=== PATIENT | female | born 1965 | race Caucasian/White ===

== ENCOUNTER 2016-06-24 02:54 | Emergency (ER) | payer MEDICARE, BC ==
[2016-06-24 03:08] VITALS: RESP 14; TEMP 98.7
[2016-06-24] MEDS ORDERED: IV VANCOMYCIN PER PHARMACY 1 EACH MISC MISCELLANE PRN (03:22)
[2016-06-24] MEDS ORDERED: ACETAMINOPHEN IV (For NPO) 1,000 MG in EMPTY BAG 1 BAG IVPB STA (03:22)
[2016-06-24] MEDS ORDERED: KETOROLAC 30 MG/ML 1 ML VIAL IVP STA (03:22)
[2016-06-24] MEDS ORDERED: MORPHINE SULFATE 4 MG/ML SYRINGE IVP STA (03:22)
[2016-06-24] MEDS ORDERED: SODIUM CHLORIDE 0.9% 1,000 ML IV STA ×2 (03:22)
--- NOTE | 2016-06-24 03:26 | ED ---
General Adult HPI - General Chief complaint: Back Pain/Injury Stated complaint: back pain Time Seen by Provider: 06/24/16 03:05 Source: patient, RN notes reviewed, old records reviewed Mode of arrival: EMS Limitations: physical limitation - History of Present Illness Initial comments: This is a 50-year-old female the ER for evaluation of back pain, increasing back pain or rash. Probably drainage from the rash going on for about 2 days. No fevers, but increasing pain and increasing pain with ambulation. Worse than normal. Patient states she ate 2 years ago she had the device placed for help with back pain, [employer] device. She had no significant issues or symptoms since. Good healing. And today she noticed drainage from the device, increasing pain for the last 2 days. Again no fevers or neurological deficit - Related Data Home Medications Medication Instructions Recorded Confirmed Carisoprodol [Soma] 350 mg PO Q8H 10/30/14 10/30/14 Hydrocodone/Acetaminophen [Vicodin 1 each PO Q4H 10/30/14 10/30/14 Es 7.5-300 mg Tablet] Ibuprofen [Motrin] 800 mg PO Q8HR PRN 10/30/14 10/30/14 traMADol HCL [Ultram ER] 200 mg PO Q6HR 10/30/14 10/30/14 Previous Rx's Medication Instructions Recorded cefTRIAXone [Rocephin] 2,000 mg IVPB Q24HR 28 Days 11/02/14 Allergies Allergy/AdvReac Type Severity Reaction Status Date / Time No Known Allergies Allergy Verified 10/30/14 15:11 Review of Systems ROS Statement: Those systems with pertinent positive or pertinent negative responses have been documented in the HPI. ROS Other: All systems not noted in ROS Statement are negative. 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 AN, LASIK EYE SX 1997, OVARIAN CYST 1993, RT KNEE ARTHROSCOPY, colonoscopy showing diverticulosis, arthroscopic knee for torn meniscus, heart catheterization in 1999, Past Anesthesia/Blood Transfusion Reactions: No Reported Reaction Past Psychological History: No Psychological Hx Reported Smoking Status: Never smoker Past Alcohol Use History: None Reported Additional Past Alcohol Use History / Comment(s): Patient states she is a lifelong nonsmoker. She denies any medical marijuana, marijuana or street drug use. She denies any alcohol use. Patient is worked at [employer] and has been on disability since 2011. Patient's mom lives with her. There is a dog in the home. No recent travel. Past Drug Use History: None Reported - Past Family History Father Family Medical History: Unable to Obtain Mother Family Medical History: Unable to Obtain General Exam Limitations: physical limitation General appearance: alert, in no apparent distress Head exam: Present: atraumatic, normocephalic, normal inspection Eye exam: Present: normal appearance, PERRL, EOMI. Absent: scleral icterus, conjunctival injection, periorbital swelling ENT exam: Present: normal exam, mucous membranes moist Neck exam: Present: normal inspection. Absent: tenderness, meningismus, lymphadenopathy Respiratory exam: Present: normal lung sounds bilaterally. Absent: respiratory distress, wheezes, rales, rhonchi, stridor Cardiovascular Exam: Present: normal rhythm, tachycardia, normal heart sounds. Absent: systolic murmur, diastolic murmur, rubs, gallop, clicks GI/Abdominal exam: Present: soft, normal bowel sounds. Absent: distended, tenderness, guarding, rebound, rigid Extremities exam: Present: normal inspection, full ROM, normal capillary refill. Absent: tenderness, pedal edema, joint swelling, calf tenderness Back exam: Present: normal inspection, rash noted, other (Patient does have abscess and drainage noted right paraspinal) Neurological exam: Present: alert, oriented X3, CN II-XII intact Psychiatric exam: Present: normal affect, normal mood Skin exam: Present: warm, dry, intact, normal color. Absent: rash Course Vital Signs 06/24/16 06/24/16 03:04 04:37 Temperature 98.7 F Pulse Rate 112 H 92 Respiratory 14 14 Rate Blood Pressure 155/71 138/63 O2 Sat by Pulse 98 95 Oximetry - Reevaluation(s) Reevaluation #1: 01/25/17 03:24 Patient's pain management doctor attempted to be reached EKG Findings - EKG Comments: EKG Findings:: EKG shows sinus tachycardia rate 102, MD 118, QRS 120, QTC 500 Medical Decision Making - Medical Decision Making 51 female in the ER for evaluation of back pain. Increasing back pain redness and drainage from surgical site. Patient has a pustular and purulent drainage from her surgical site. Patient was started on IV antibiotics and transferred to facility where her surgery was done - Lab Data Result diagrams: 06/24/16 03:55 06/24/16 03:55 Lab Results 06/24/16 06/24/16 06/24/16 Range/Units 03:55 03:55 03:55 WBC 12.2 H (3.8-10.6) k/uL RBC 3.79 L (3.80-5.40) m/uL Hgb 9.5 L (11.4-16.0) gm/dL Hct 30.7 L (34.0-46.0) % MCV 81.1 (80.0-100.0) fL MCH 24.9 L (25.0-35.0) pg MCHC 30.8 L (31.0-37.0) g/dL RDW 15.7 H (11.5-15.5) % Plt Count 307 (150-450) k/uL Neutrophils % 82 % Lymphocytes % 11 % Monocytes % 4 % Eosinophils % 2 % Basophils % 0 % Neutrophils # 10.0 H (1.3-7.7) k/uL Lymphocytes # 1.4 (1.0-4.8) k/uL Monocytes # 0.5 (0-1.0) k/uL Eosinophils # 0.2 (0-0.7) k/uL Basophils # 0.1 (0-0.2) k/uL Hypochromasia Slight Sodium 140 (137-145) mmol/L Potassium 4.1 (3.5-5.1) mmol/L Chloride 105 (98-107) mmol/L Carbon Dioxide 22 (22-30) mmol/L Anion Gap 13 mmol/L BUN 12 (7-17) mg/dL Creatinine 0.65 (0.52-1.04) mg/dL Est GFR (MDRD) Af Amer >60 (>60 ml/min/1.73 sqM) Est GFR (MDRD) Non-Af >60 (>60 ml/min/1.73 sqM) Glucose 105 H (74-99) mg/dL Plasma Lactic Acid Lorenzo 1.2 (0.7-2.0) mmol/L Calcium 8.7 (8.4-10.2) mg/dL Phosphorus 3.5 (2.5-4.5) mg/dL Magnesium 1.7 (1.6-2.3) mg/dL Total Bilirubin 0.6 (0.2-1.3) mg/dL AST 32 (14-36) U/L ALT 32 (9-52) U/L Alkaline Phosphatase 86 (38-126) U/L Total Protein 7.1 (6.3-8.2) g/dL Albumin 3.4 L (3.5-5.0) g/dL Disposition Clinical Impression: Post op infection Disposition: OTHER INSTITUTION NOT DEFINED Condition: Fair Referrals: Ced Tobias MD [Primary Care Provider] - 1-2 days - Out of Hospital Transfer - Req. Specs Out of Hospital Transfer - Requested Specifics[facility]
[2016-06-24] MEDS ORDERED: VANCOMYCIN 2,000 MG in SODIUM CHLORIDE 0.9% 500 ML IVPB STA (03:31)
[2016-06-24 04:07] LABS: Basophils # (A) 0.1 k/uL (0-0.2); Basophils % (A) 0 %; CH 25.5; CHCM 31.5; Eosinophils # (A) 0.2 k/uL (0-0.7); Eosinophils % (A) 2 %; HCT 30.7 % (34.0-46.0); HDW 3.15; HGB 9.5 gm/dL (11.4-16.0); Hypochromasia Slight; Luc # (Auto) 0.12; Luc % (Auto) 1; Lymphocytes # (A) 1.4 k/uL (1.0-4.8); Lymphocytes % (A) 11 %; MCH 24.9 pg (25.0-35.0); MCHC 30.8 g/dL (31.0-37.0); MCV 81.1 fL (80.0-100.0); Mean Platelet Volume 8.1; Monocytes # (A) 0.5 k/uL (0-1.0); Monocytes % (A) 4 %; Neutrophils % (A) 82 %; RBC 3.79 m/uL (3.80-5.40); RDW 15.7 % (11.5-15.5); WBC 12.2 k/uL (3.8-10.6); WBC (Perox) 13.32
[2016-06-24 04:17] LABS: ALT 32 U/L (9-52); AST 32 U/L (14-36); Alkaline Phosphatase 86 U/L (38-126); Anion Gap 13 mmol/L; Blood Urea Nitrogen 12 mg/dL (7-17); Calcium 8.7 mg/dL (8.4-10.2); Carbon Dioxide 22 mmol/L (22-30); Chloride 105 mmol/L (98-107); Glucose 105 mg/dL (74-99); Magnesium 1.7 mg/dL (1.6-2.3); Non-African American GFR(MDRD) >60 (>60 ml/min/1.73 sqM); Phosphorous 3.5 mg/dL (2.5-4.5); Potassium 4.1 mmol/L (3.5-5.1); Sodium 140 mmol/L (137-145); Total Bilirubin 0.6 mg/dL (0.2-1.3); Total Protein 7.1 g/dL (6.3-8.2)
[2016-06-24 04:38] VITALS: BP 138/63; PULSE 92
[2016-06-24 05:54] LABS: INR 1.1 (<1.1); Partial Thromboplastin Time 36.7 sec (22.0-30.0); Prothrombin Time 11.1 sec (9.0-12.0)
== END 2016-06-24 05:52 | disposition other institution (70) ==
LOC: EC 02:54
DX: T85.79XA Infection and inflammatory reaction due to other internal prosthetic devices, implants and grafts, initial encounter (principal); M54.9 Dorsalgia, unspecified; G89.29 Other chronic pain; M43.27 Fusion of spine, lumbosacral region; Z98.61 Coronary angioplasty status; Z79.899 Other long term (current) drug therapy; Z79.891 Long term (current) use of opiate analgesic
CPT/HCPCS: 99285 ×2; 96365 ×2; 96375 ×2; 36415; 93005; 80053; 83605; 83735; 84100; 85025; 85610; 85730; 87040; 96367; J3370; J2270; J1885; J0131

== ENCOUNTER → 2016-08-03 | Outpatient (CLI) | payer MEDICARE, BC ==
[2016-08-03 17:37] LABS: Anisocytosis Slight; Basophils # (A) 0.1 k/uL (0-0.2); Basophils % (A) 1 %; CH 27.2; CHCM 31.9; Eosinophils # (A) 0.2 k/uL (0-0.7); Eosinophils % (A) 3 %; HCT 42.3 % (34.0-46.0); HDW 3.11; HGB 13.3 gm/dL (11.4-16.0); Hypochromasia Slight; Luc # (Auto) 0.18; Luc % (Auto) 2; Lymphocytes # (A) 2.2 k/uL (1.0-4.8); Lymphocytes % (A) 29 %; MCH 26.9 pg (25.0-35.0); MCHC 31.5 g/dL (31.0-37.0); MCV 85.5 fL (80.0-100.0); Mean Platelet Volume 7.9; Monocytes # (A) 0.3 k/uL (0-1.0); Monocytes % (A) 4 %; Neutrophils # (A) 4.6 k/uL (1.3-7.7); Neutrophils % (A) 61 %; RBC 4.95 m/uL (3.80-5.40); RDW 17.4 % (11.5-15.5); WBC 7.5 k/uL (3.8-10.6); WBC (Perox) 8.01
[2016-08-03 17:50] LABS: Anion Gap 14 mmol/L; Blood Urea Nitrogen 24 mg/dL (7-17); Calcium 9.6 mg/dL (8.4-10.2); Carbon Dioxide 22 mmol/L (22-30); Chloride 107 mmol/L (98-107); Creatine Kinase 42 U/L (30-135); Glucose 88 mg/dL (74-99); Non-African American GFR(MDRD) >60 (>60 ml/min/1.73 sqM); Potassium 4.4 mmol/L (3.5-5.1); Sodium 143 mmol/L (137-145)
[2016-08-03 19:08] LABS: Erythrocyte Sedimentation Rate 50 mm/hr (0-20)
== END | disposition home or self-care (01) ==
LOC: LABWHC1 16:52
PROVIDERS: ATTEND Internal Medicine Infectious Disease
DX: T85.9XXA Unspecified complication of internal prosthetic device, implant and graft, initial encounter (principal)
CPT/HCPCS: 36415; 80048; 82550; 85025; 85652; 86140

== ENCOUNTER → 2016-08-20 | Outpatient (CLI) | payer MEDICARE, BC | LOC: LABWHC1 15:24 | PROVIDERS: ATTEND Internal Medicine Infectious Disease | DX: B99.9 Unspecified infectious disease (principal); A49.02 Methicillin resistant Staphylococcus aureus infection, unspecified site | CPT/HCPCS: 36415; 85652; 86140 ==

== ENCOUNTER → 2016-12-14 | Outpatient (CLI) | payer MEDICARE, BC ==
[2016-12-14 16:46] LABS: Anisocytosis Slight; Basophils # (A) 0.1 k/uL (0-0.2); Basophils % (A) 1 %; CH 26.8; Eosinophils # (A) 0.2 k/uL (0-0.7); Eosinophils % (A) 3 %; HCT 39.1 % (34.0-46.0); HDW 2.89; HGB 12.7 gm/dL (11.4-16.0); Hypochromasia Slight; Luc % (Auto) 1; Lymphocytes # (A) 1.8 k/uL (1.0-4.8); Lymphocytes % (A) 23 %; MCH 27.3 pg (25.0-35.0); MCHC 32.5 g/dL (31.0-37.0); Mean Platelet Volume 7.4; Monocytes # (A) 0.4 k/uL (0-1.0); Monocytes % (A) 4 %; Neutrophils # (A) 5.5 k/uL (1.3-7.7); Neutrophils % (A) 68 %; RBC 4.65 m/uL (3.80-5.40); RDW 16.3 % (11.5-15.5); WBC (Perox) 7.94
[2016-12-14 16:59] LABS: ALT 33 U/L (9-52); AST 21 U/L (14-36); Alkaline Phosphatase 77 U/L (38-126); Anion Gap 13 mmol/L; Blood Urea Nitrogen 20 mg/dL (7-17); C Reactive Protein 15.4 mg/L (<10.0); Calcium 9.1 mg/dL (8.4-10.2); Carbon Dioxide 21 mmol/L (22-30); Chloride 106 mmol/L (98-107); Creatine Kinase 65 U/L (30-135); Glucose 120 mg/dL (74-99); Non-African American GFR(MDRD) >60 (>60 ml/min/1.73 sqM); Potassium 3.9 mmol/L (3.5-5.1); Sodium 140 mmol/L (137-145); Total Bilirubin 0.3 mg/dL (0.2-1.3); Total Protein 7.2 g/dL (6.3-8.2)
[2016-12-14 22:06] LABS: Erythrocyte Sedimentation Rate 40 mm/hr (0-20)
== END | disposition home or self-care (01) ==
LOC: LABWHC1 16:04
PROVIDERS: ATTEND Internal Medicine Infectious Disease
DX: L02.212 Cutaneous abscess of back [any part, except buttock and flank] (principal); L03.312 Cellulitis of back [any part except buttock and flank]; L02.31 Cutaneous abscess of buttock
CPT/HCPCS: 36415; 80053; 82550; 85025; 85652; 86140

== ENCOUNTER → 2016-12-21 | Outpatient (CLI) | payer MEDICARE, BC ==
[2016-12-21 17:10] LABS: Anisocytosis Slight; CH 27.6; CHCM 32.6; HCT 41.7 % (34.0-46.0); HDW 2.99; HGB 13.8 gm/dL (11.4-16.0); MCV 84.9 fL (80.0-100.0); Mean Platelet Volume 8.1; RBC 4.91 m/uL (3.80-5.40); RDW 16.6 % (11.5-15.5); WBC 10.8 k/uL (3.8-10.6)
[2016-12-21 17:18] LABS: ALT 37 U/L (9-52); AST 26 U/L (14-36); Alkaline Phosphatase 82 U/L (38-126); Anion Gap 16 mmol/L; Blood Urea Nitrogen 18 mg/dL (7-17); Calcium 9.3 mg/dL (8.4-10.2); Carbon Dioxide 21 mmol/L (22-30); Chloride 105 mmol/L (98-107); Creatine Kinase 69 U/L (30-135); Glucose 98 mg/dL (74-99); Non-African American GFR(MDRD) >60 (>60 ml/min/1.73 sqM); Sodium 142 mmol/L (137-145); Total Bilirubin 0.4 mg/dL (0.2-1.3)
== END | disposition home or self-care (01) ==
LOC: LABWHC1 16:37
PROVIDERS: ATTEND Orthopaedic Surgery
DX: L02.212 Cutaneous abscess of back [any part, except buttock and flank] (principal); L03.312 Cellulitis of back [any part except buttock and flank]; L02.31 Cutaneous abscess of buttock; Z45.2 Encounter for adjustment and management of vascular access device
CPT/HCPCS: 36415; 80053; 82550; 85027

== ENCOUNTER → 2017-01-07 | Outpatient (CLI) | payer MEDICARE, BC ==
[2017-01-07 15:32] LABS: Anisocytosis Slight; CH 27.3; CHCM 32.2; HCT 41.5 % (34.0-46.0); HDW 2.76; HGB 13.7 gm/dL (11.4-16.0); MCH 28.2 pg (25.0-35.0); MCHC 33.1 g/dL (31.0-37.0); MCV 85.1 fL (80.0-100.0); Mean Platelet Volume 7.4; RBC 4.87 m/uL (3.80-5.40); RDW 16.1 % (11.5-15.5); WBC 7.9 k/uL (3.8-10.6)
[2017-01-07 15:45] LABS: ALT 35 U/L (9-52); AST 27 U/L (14-36); Alkaline Phosphatase 82 U/L (38-126); Anion Gap 13 mmol/L; Blood Urea Nitrogen 19 mg/dL (7-17); C Reactive Protein 9.6 mg/L (<10.0); Calcium 9.2 mg/dL (8.4-10.2); Carbon Dioxide 21 mmol/L (22-30); Chloride 109 mmol/L (98-107); Glucose 76 mg/dL (74-99); Non-African American GFR(MDRD) >60 (>60 ml/min/1.73 sqM); Sodium 143 mmol/L (137-145); Total Bilirubin 0.3 mg/dL (0.2-1.3); Total Protein 7.7 g/dL (6.3-8.2)
[2017-01-07 19:33] LABS: Erythrocyte Sedimentation Rate 25 mm/hr (0-20)
== END | disposition home or self-care (01) ==
LOC: LABWHC1 15:06
PROVIDERS: ATTEND Internal Medicine Infectious Disease
DX: B99.9 Unspecified infectious disease (principal)
CPT/HCPCS: 36415; 80053; 85027; 85652; 86140

== ENCOUNTER → 2017-01-18 | Outpatient (CLI) | payer MEDICARE, BC ==
--- NOTE | 2017-01-19 08:56 | NM ---
EXAMINATION TYPE: NM bone scan whole body DATE OF EXAM: 01/18/2017 COMPARISON: NONE HISTORY: Pain, failed back syndrome Delayed whole-body scanning was performed following the injection of 25.1 mCi Tc 99m MDP. Images acq uired 3.5 hours post injection. FINDINGS: There is mild increased uptake lumbar spine compatible with degenerative change and postoperative betsey nges. No evidence for intense uptake. Degenerative uptake is seen in the shoulders, sternoclavicular joints, bilateral knees, bilateral ankles and mid feet. No intense uptake to suggest fracture or osse ous lesion. IMPRESSION: Degenerative and postoperative uptake as noted.
== END | disposition home or self-care (01) ==
LOC: RADNMMAIN 10:29
PROVIDERS: ATTEND Orthopaedic Surgery
DX: S31.819D Unspecified open wound of right buttock, subsequent encounter (principal); S31.829D Unspecified open wound of left buttock, subsequent encounter; M96.1 Postlaminectomy syndrome, not elsewhere classified; Z98.890 Other specified postprocedural states
CPT/HCPCS: 78306; A9503

== ENCOUNTER → 2017-01-25 | Outpatient (CLI) | payer MEDICARE, BC ==
--- NOTE | 2017-01-28 14:55 | NM ---
EXAMINATION TYPE: NM Gallium whole body 2+ days DATE OF EXAM: 01/28/2017 COMPARISON: NONE HISTORY: Open decubitus ulcerations bilaterally for 3 years since [employer] stimulator installation 2 014. History of L2-S1 spinal surgery. Following administration of 5.62 mCi Ga67 Citrate. Images obtained 4, 24, 48, and 72 hours post injec tion. FINDINGS: There is no gallium uptake exceeding bone seeking radiopharmaceutical uptake to indicate active osteo myelitis. Physiologic uptake is seen within the liver and nasopharynx. Uptake is present at the gleno humeral joints, femoral acetabular joints, knees, ankle joints, and sacroiliac joints most likely rel ated to inflammation from degenerative change. Superficial accumulation is seen overlying the gluteal region in the known distribution of the bilateral ulcers. IMPRESSION: 1. Superficial accumulation of gallium within the gluteal regions corresponding the patient's known u lcerations. 2. Symmetric uptake within the glenohumeral joints, femoral acetabular joints, knees, ankle joints, a nd sacroiliac joints that is most likely related to nonspecific inflammation of degenerative change. 3. No focal suspicious radiotracer accumulation to indicate active osteomyelitis.
== END | disposition home or self-care (01) ==
LOC: RADNMMAIN 09:51
PROVIDERS: ATTEND Orthopaedic Surgery
DX: S31.829D Unspecified open wound of left buttock, subsequent encounter (principal); M96.1 Postlaminectomy syndrome, not elsewhere classified
CPT/HCPCS: 78804; A9556

== ENCOUNTER → 2019-02-22 | Outpatient (CLI) | payer MEDICARE ==
--- NOTE | 2019-02-24 13:23 | MM ---
Reason for exam: screening (asymptomatic). Last mammogram was performed 13 years and 3 months ago. History: Patient is nulliparous. Took hormonal contraceptives beginning at age 29. Physical Findings: A clinical breast exam by your physician is recommended on an annual basis and results should be correlated with mammographic findings. MG 3D Screening Mammo W/Cad Bilateral CC and MLO view(s) were taken. No prior studies available for comparison. The breast tissue is almost entirely fat. There is no discrete abnormality. ASSESSMENT: Negative, BI-RAD 1 RECOMMENDATION: Routine screening mammogram of both breasts in 1 year.
== END | disposition home or self-care (01) ==
LOC: RADMAMWWP 14:27
PROVIDERS: ATTEND Family Medicine
DX: Z12.31 Encounter for screening mammogram for malignant neoplasm of breast (principal)
CPT/HCPCS: 77063; 77067

== ENCOUNTER → 2023-07-15 | Outpatient (CLI) | payer MEDICARE ==
--- NOTE | 2023-07-16 19:02 | MM ---
Reason for Exam: Screening (asymptomatic). Last mammogram was performed 4 year(s) and 5 month(s) ago. Patient History: Menarche at age 9. Patient has no children. Hysterectomy at age 37. Hormonal Contraceptives, from age 29 until age 38. Risk Values: Fany 5 year model risk: 1.8%. NCI Lifetime model risk: 8.9%. Prior Study Comparison: 03/09/2005 Bilateral Diagnostic Mammogram, [facility]. 12/04/2005 Left Diagnostic Mammogram, [facility]. 02/22/2019 Bilateral Screening Mammogram, [facility]. Tissue Density: There are scattered fibroglandular densities. Findings: Analyzed By CAD. Unchanged intramammary lymph node outer aspect of the right breast. There is no suspicious group of microcalcifications or new suspicious mass in either breast. Overall Assessment: Benign, BI-RAD 2 Management: Screening Mammogram of both breasts in 1 year. . Patient should continue monthly self-breast exams. A clinical breast exam by your physician is recommended on an annual basis. This exam should not preclude additional follow-up of suspicious palpable abnormalities. Note on Fany scores and lifetime risk: 1. A Fany score greater than 3% is considered moderate risk. If this is the case, consider specialist referral to assess eligibility for a risk reducing agent. 2. If overall lifetime risk for the development of breast cancer is 20% or higher, the patient may qualify for future screening with alternating mammogram and breast MRI. Electronically signed and approved by: Nadege De La Rosa M.D. Radiologist
== END | disposition home or self-care (01) ==
LOC: RADMAMWWP 14:39
PROVIDERS: ATTEND Family Medicine
DX: Z12.31 Encounter for screening mammogram for malignant neoplasm of breast (principal)
CPT/HCPCS: 77063; 77067